=== PATIENT | male | born 2000 ===

== ENCOUNTER 2021-07-18 18:10 | Emergency (ER) | payer OTHER, BC ==
[~2021-07-18] VITALS: Ht 182.9 cm; Wt 88.6 kg
[2021-07-18 18:17] VITALS: TEMP 98.5
[2021-07-18 19:40] VITALS: BP 145/95; PULSE 76
== END 2021-07-18 19:40 | disposition home or self-care (01) ==
LOC: COL.ER 18:10
DX: S60.352A Superficial foreign body of left thumb, initial encounter (principal); Z28.310 Unvaccinated for COVID-19; W29.4XXA Contact with nail gun, initial encounter; Y92.59 Other trade areas as the place of occurrence of the external cause; Y99.0 Civilian activity done for income or pay